=== PATIENT | female | born 1995 | race Caucasian/White ===

== ENCOUNTER 2018-03-25 23:25 | Emergency (ER) | payer OTHER ==
[~2018-03-25] VITALS: Ht 160 cm; Wt 158.8 kg
[~2018-03-25 23:25] MED LIST: CIPRO500 MG PO; FLAGYL500 MG PO; HYDROCODONE-AP1 EAC6 PO; ONDANSETRON HCL4 M2 PO; TRAMADOL 50 MG50 MG PO
[2018-03-25] MEDS ORDERED: MIRENA1 EACH (23:33)
[2018-03-25] MEDS ORDERED: NAPROSYN500 MG PO (23:46)
[2018-03-25] MEDS ORDERED: ROBAXIN500 MG PO (23:46)
[2018-03-26 00:05] VITALS: BP 142/70
== END 2018-03-26 00:05 | disposition home or self-care (01) ==
LOC: M.ERS 23:25
DX: S76.191A Other specified injury of right quadriceps muscle, fascia and tendon, initial encounter (principal); Z88.5 Allergy status to narcotic agent; Z88.1 Allergy status to other antibiotic agents; Z88.0 Allergy status to penicillin; X50.1XXA Overexertion from prolonged static or awkward postures, initial encounter; Y93.89 Activity, other specified; Y92.89 Other specified places as the place of occurrence of the external cause; Y99.8 Other external cause status

== ENCOUNTER → 2018-04-02 | Outpatient (CLI) | payer OTHER ==
[~2018-04-02] MED LIST changes: +MIRENA1 EACH; +NAPROSYN500 MG PO; +ROBAXIN500 MG PO
== END ==
LOC: M.MRI 07:47
DX: M25.561 Pain in right knee (principal)